=== PATIENT | female | born 1955 | race Caucasian/White ===

== ENCOUNTER 2017-02-04 10:27 | Emergency (ER) | payer BC, OTHER ==
[2017-02-04 10:39] VITALS: BP 112/72
--- NOTE | 2017-02-04 10:50 | UC ---
Complaint Female HPI - HPI Summary HPI Summary: Patient presents to the with urgency, frequency, burning upon urination. Dark colored, cloudy urine. Denies flank pain. Denies diaphoresis and chills. Denies known fever. No abnormal vaginal discharge reported. Otherwise healthy. Symptoms began last evening and worsened this morning. She has not had antibiotics or UTI for several years. She has a history and states this feels similar. Denies other pain or symptoms. She is otherwise healthy and takes no medications. - History Of Current Complaint Chief Complaint: UCGU Stated Complaint: URINARY ISSUE Time Seen by Provider: 02/04/17 10:41 Hx Obtained From: Patient ?: No Onset/Duration: Sudden Onset Timing: Constant Severity Initially: Mild Severity Currently: Mild Pain Intensity: 5 Pain Scale Used: 0-10 Numeric Character: Burning Aggravating Factor(s): Urination Alleviating Factor(s): Nothing - Risk Factors Ectopic Risk Factor: Negative Ovarian Torsion Risk Factor: Negative - Allergies/Home Medications Allergies/Adverse Reactions: Allergies Allergy/AdvReac Type Severity Reaction Status Date / Time No Known Allergies Allergy Verified 02/04/17 10:38 PMH/Surg Hx/FS Hx/Imm Hx Previously Healthy: Yes - Surgical History Surgical History: Yes Surgery Procedure, Year, and Place: ovary removed r/t fibroid 2008 - Family History Known Family History: Positive: None - Social History Occupation: Employed Full-time Lives: With Family Alcohol Use: Occasionally Substance Use Type: None Smoking Status (MU): Never Smoked Tobacco Review of Systems Constitutional: Negative Skin: Negative Respiratory: Negative Cardiovascular: Negative Gastrointestinal: Negative Genitourinary: Dysuria, Frequency, Urgency Motor: Negative Musculoskeletal: Negative Neurological: Negative Is Patient Immunocompromised?: No All Other Systems Reviewed And Are Negative: Yes Physical Exam Triage Information Reviewed: Yes Appearance: Well-Appearing, Well-Nourished Vital Signs: Initial Vital Signs Temp 98.8 F 02/04/17 10:34 Pulse 66 02/04/17 10:34 Resp 18 02/04/17 10:34 BP 112/72 02/04/17 10:34 Pulse Ox 99 02/04/17 10:34 Vital Signs Reviewed: Yes Eye Exam: Normal Eyes: Positive: Conjunctiva Clear Neck exam: Normal Neck: Positive: Supple, No Lymphadenopathy Respiratory Exam: Normal Respiratory: Positive: Chest non-tender, Lungs clear Cardiovascular Exam: Normal Cardiovascular: Positive: RRR Abdominal Exam: Normal Abdomen Description: Positive: Nontender, No Organomegaly, Soft, Other: - no CVA tenderness Musculoskeletal Exam: Normal Musculoskeletal: Positive: Strength Intact Neurological Exam: Normal Neurological: Positive: Alert Psychological: Positive: Normal Response To Family, Age Appropriate Behavior Skin Exam: Normal Complaint Female Dx - Course Course Of Treatment: UA performed. WBC and leuks seen. +3 RBC. Labs WNL. Patient experiencing urgency, frequency and pain on urination. Dark urine noted. No abnormal vaginal discharge or bleeding. No CVA tenderness bilaterally. No previous UTI within last 6 months and no recent Augmentin use. Will treat for uncomplicated UTI with Bactrim. Patient has not allergies. Pyridium given for comfort. Return precautions and follow up with PCP. - Differential Dx/Diagnosis Differential Diagnosis/HQI/PQRI: Cervicitis, Renal Colic, Urinary Tract Infection Provider Diagnoses: UTI Discharge - Discharge Plan Condition: Stable Disposition: HOME Prescriptions: Phenazopyridine TAB* [Pyridium 100 mg TAB*] 100 mg PO TID #12 tab Sulfamethox/Trimethoprim DS* [Bactrim DS 800/160 TAB*] 1 tab PO BID #10 tab MDD 2 Patient Education Materials: Urinary Tract Infection in Women (ED) Referrals: Kinjal Arita MD [Primary Care Provider] - Additional Instructions: Dx. Urinary Tract Infection Drink plenty of fluids. Supplement with cranberry or magaña juice. You may also take an over the counter cranberry supplement. If you have any questions about this, you may ask your pharmacist. If your symptoms have not improved in 1-2 days, if you develop fever, sweats or chills, please go to your emergency room, or call your PCP. Antibiotics were prescribed to you. Please take as directed. Supplement with over the counter probiotics on the opposite schedule of your antibiotic to prevent secondary infections. Do not take together as they may counteract each other. Pyridium: This medication is used to treat pain, burning, increased urination, and increased urge to urinate. These symptoms are usually caused by infection, injury, surgery, catheter, or other conditions that irritate the lower urinary tract. Pyridium will treat the symptoms of a urinary tract infection, but this medication does not treat the actual infection. Take the antibiotic that your doctor prescribes to treat your infection. Pyridium will most likely darken the color of your urine to an orange or red color. This is a normal effect and is not cause for alarm unless you have other symptoms such as pale or yellowed skin, fever, stomach pain, nausea, and vomiting. Darkened urine may also cause stains to your underwear, which may or may not be removed by laundering. It can also permanently stain soft contact lenses, and you should not wear them while taking this medicine.
== END 2017-02-04 11:00 | disposition home or self-care (01) ==
LOC: UCEAST 10:27
DX: N39.0 Urinary tract infection, site not specified (principal)
CPT/HCPCS: 81003; 87077; 87086; 87186; 99212; G0463

== ENCOUNTER 2023-10-07 15:05 | Observation (INO) ==
[2023-10-07 16:02] LABS: ABS Lymphocytes 0.6 10^3/uL (1.0-4.8); ABS Monocytes 0.6 10^3/uL (0.0-0.9); ABS Neutrophils 7.6 10^3/uL (1.5-7.6); Eosinophil % 0.4 %; Hemoglobin 13.5 g/dL (11.5-14.3); Lymphocyte % 6.2 %; Mean Corpuscular Hemoglobin 33.1 pg (27-33); Mean Corpuscular Hgb Conc 35.5 g/dL (31-36); Mean Corpuscular Volume 93.4 fL (80-97); Mean Platelet Volume 7.7 fL (7.5-11.2); Platelet Count 247 10^3/uL (150-450); Red Blood Count 4.07 10^6/uL (3.63-4.92); Red Cell Distribution Width 12.6 % (12-17); White Blood Count 8.9 10^3/uL (3.8-11.8)
[2023-10-07] MEDS ORDERED: LORazepam 2 MG/ML 1 mL Syringe ONE (16:18)
[2023-10-07] MEDS ORDERED: levETIRAcetam 1000MG IVPREMIX 1,000 MG/100 ML BAG ONE (16:19)
[2023-10-07 16:28] LABS: High Sens Troponin Baseline 4 pg/mL (<15)
[2023-10-07] MEDS: LORazepam 2 mg VIAL 1 ml IV PUSH ONE (16:32)
[2023-10-07] MEDS: levETIRAcetam 1000MG IVPREMIX 1,000 MG/100 ML BAG IVPB ONE (16:35)
[2023-10-07] MEDS ORDERED: Lorazepam PYXIS KEY PRN (17:04)
[2023-10-07 17:09] LABS: ALT 12 U/L (7-52); Albumin 4.3 g/dL (3.2-5.2); Albumin/Globulin Ratio 1.7 (1-3); Alcohol, S < 13 mg/dL (<13); Alkaline Phosphatase 69 U/L (35-149); Anion Gap 15 mmol/L (2-16); Blood Urea Nitrogen 18 mg/dL (6-24); CO2 Carbon Dioxide 22 mmol/L (22-32); Calcium 10.2 mg/dL (8.6-10.3); Chloride 88 mmol/L (101-111); Creatinine, Serum 0.91 mg/dL (0.51-0.95); Globulin 2.5 g/dL (2-4); Glucose 139 mg/dL (70-100); Sodium 125 mmol/L (135-145); Total Bilirubin 0.9 mg/dL (0.2-1.0); Total Protein 6.8 g/dL (6.4-8.9); eGFR CKD-EPI 68.3 (>60)
[2023-10-07] MEDS ORDERED: LORazepam 2 MG/ML 1 mL Syringe IV PRN (19:08)
[2023-10-07] MEDS: Ondansetron 4 mg VIAL 2 MG/ML 2 ml VIAL IV PRN (19:39)
[2023-10-07] MEDS: NS 0.9% 500 ml BAG 500 ML IV ONE (19:40)
[2023-10-07 20:15] LABS: Potassium Redraw 3.1 mmol/L (3.5-5.0)
[2023-10-07] MEDS: Gadoteridol (CONTRAST) 279.3 MG/ML 10 ML IV ONE (20:42)
[2023-10-07] MEDS: Enoxaparin 40 MG/0.4 ML SYR SUBCUT SCH (21:44)
[2023-10-07] MEDS: levETIRAcetam 500 MG IVPREMIX 500 MG/100 ML BAG IVPB SCH (21:54)
[2023-10-07 22:27] LABS: Urine Appearance Clear; Urine Bilirubin Negative (Negative); Urine Blood Negative (Negative); Urine Color Light-Yellow; Urine Glucose Negative (Negative); Urine Ketones 1+ (Negative); Urine Nitrite Negative (Negative); Urine Protein Negative (Negative); Urine Specific Gravity 1.015 (1.002-1.030); Urine Urobilinogen Negative (Negative)
[2023-10-07 22:29] LABS: Osmolality Serum 265 mOsm/kg (275-295)
[2023-10-07 22:38] LABS: Urine Osmo 492 mOsm/kg (150-1150)
[2023-10-07 23:02] LABS: Urine Bacteria Absent /HPF (Absent); Urine Red Blood Cell Trace(0-2/hpf) /HPF (0-Trace); Urine Squamous Epithelial Cell Present /HPF (Absent); Urine White Blood Cell Trace(0-5/hpf) /HPF (0-Trace)
[2023-10-07 23:10] LABS: Potassium 3.8 mmol/L (3.5-5.0)
[2023-10-07 23:11] LABS: Phosphorus 3.7 mg/dL (2.5-5.0)
[2023-10-07 23:12] LABS: Creatinine, Serum 0.96 mg/dL (0.51-0.95); Magnesium 1.6 mg/dL (1.9-2.7)
[2023-10-08] MEDS: NS 0.9% 1000 ml BAG 1,000 ML IV ONE (03:38)
[2023-10-08 05:04] LABS: ABS Basophils 0.1 10^3/uL (0.0-0.1); ABS Lymphocytes 0.8 10^3/uL (1.0-4.8); ABS Neutrophils 5.8 10^3/uL (1.5-7.6); Eosinophil % 0.4 %; Hemoglobin 11.8 g/dL (11.5-14.3); Lymphocyte % 10.8 %; Mean Corpuscular Hemoglobin 32.8 pg (27-33); Mean Corpuscular Hgb Conc 34.6 g/dL (31-36); Mean Corpuscular Volume 94.6 fL (80-97); Mean Platelet Volume 7.4 fL (7.5-11.2); Platelet Count 218 10^3/uL (150-450); Red Blood Count 3.59 10^6/uL (3.63-4.92); Red Cell Distribution Width 12.8 % (12-17); White Blood Count 7.8 10^3/uL (3.8-11.8)
[2023-10-08 05:32] LABS: Calcium 9.2 mg/dL (8.6-10.3); Creatinine, Serum 0.94 mg/dL (0.51-0.95); Magnesium 1.5 mg/dL (1.9-2.7); Potassium 3.3 mmol/L (3.5-5.0); eGFR CKD-EPI 65.7 (>60)
[2023-10-08] MEDS: Potassium Chlor 20 meq TAB.ER PO ONE (09:02)
[2023-10-08] MEDS: Magnesium Sulfate 2 gm BAG 2 GM/50 ML BAG IVPB ONE (09:03)
[2023-10-08 10:05] VITALS: BP 111/75
== END 2023-10-08 13:50 | disposition home or self-care (01) ==
LOC: ED 15:05 → EDHOLD 15:05 → SUATTDRO 18:21 → EDHOLD 20:02 → MEDTELE 21:12
PROVIDERS: ADMIT Hospitalist; ATTEND Internal Medicine